=== PATIENT | male | born 1980 | race Native Hawaiian/Other Pacific Islander ===

== ENCOUNTER 2019-07-26 13:41 | Outpatient (CLI) | payer BC ==
[2019-07-26 14:12] LABS: PLATELET COUNT 190 K/uL (142-355)
== END 2019-07-26 19:12 | disposition home or self-care (01) ==
LOC: LABW 13:41
PROVIDERS: Internal Medicine
DX: D75.1 Secondary polycythemia (principal)
CPT/HCPCS: 36415; 82728; 83540; 83550; 85027; 99195